=== PATIENT | male | born 1945 | race Hispanic/Latino ===

== ENCOUNTER 2023-01-13 06:45 | Day surgery (SDC) | payer MEDICARE ==
[2023-01-10 10:11] LABS: HEMATOCRIT 46.7 % (42-54); MEAN CORPUSCULAR HEMOGLOBIN 30.7 pg (27.0-33.0); MEAN CORPUSCULAR HGB CONC 32.1 g/dL (32.0-36.0); MEAN CORPUSCULAR VOLUME 95.7 fL (79-99); RED BLOOD CELL COUNT(AUTO) 4.88 MIL/uL (4.50-6.20); RED CELL DISTRIBUTION WIDTH 14.7 % (11.0-15.5); WHITE BLOOD COUNT (AUTO) 6.1 K/uL (4.8-10.8)
[2023-01-10 10:30] LABS: INR 1.04 (0.85-1.15); POTASSIUM 4.5 mmol/L (3.5-5.1); PROTHROMBIN TIME 11.3 SEC (9.6-11.6)
[2023-01-10 10:32] LABS: PARTIAL THROMBOPLASTIN TIME 32.7 SEC (26.3-35.5)
[2023-01-10 13:04] VITALS: BP 111/48
[2023-01-13] VITALS (17 sets, daily range): BP systolic 134–159; BP diastolic 60–74
[~2023-01-13] VITALS: Ht 172.7 cm; Wt 72.7 kg
[~2023-01-13 06:45] MED LIST: CARV12.511 PO; CLOP75TA32 PO; FOLI1TAB85 PO; INSULIN SQ; MEMA10TA55 PO; PRAV40TA3 PO; SEVE800T27 PO; TAMS-1 PO; THIA100T91 PO
[2023-01-13] MEDS ORDERED: 0.9% NACL 500ML IV.SOLN 500 ML IV ONE (07:19)
[2023-01-13 07:21] LABS: CREATININE 6.3 mg/dL (0.5-1.5); POTASSIUM 4.6 mmol/L (3.5-5.1)
[2023-01-13] MEDS: CEFAZOLIN SODIUM 2 GM VIAL IVPB SCH ×2 (07:24→08:45)
[2023-01-13] MEDS ORDERED: CEFAZOLIN SODIUM 1 GM VIAL ONE (07:47)
[2023-01-13] MEDS ORDERED: BUPIVACAINE/PF 0.5% 30ML VIAL ONE (07:50)
[2023-01-13] MEDS ORDERED: PROPOFOL 10 MG/ML 20ML VIAL IV ONE (08:09)
[2023-01-13] MEDS ORDERED: ROCURONIUM 10MG/1ML SYR 10 MG/ML ML ONE (08:10)
[2023-01-13] MEDS ORDERED: FENTANYL CITRATE PF 50 MCG/1 ML 2ML VIAL ONE (08:10)
[2023-01-13] MEDS ORDERED: GLYCOPYRROLATE 1 MG/5 ML SYRINGE ONE (08:30)
[2023-01-13] MEDS ORDERED: INSU100I26 SQ (08:32)
[2023-01-13] MEDS ORDERED: NEOSTIGMINE 5MG/5ML SYR IV ONE (09:34)
== END 2023-01-13 11:15 | disposition home or self-care (01) ==
LOC: DAH 06:45
PROVIDERS: ATTEND Thoracic Surgery (Cardiothoracic Vascular Surgery)
DX: E11.22 Type 2 diabetes mellitus with diabetic chronic kidney disease (principal); Z20.822 Contact with and (suspected) exposure to COVID-19; I12.0 Hypertensive chronic kidney disease with stage 5 chronic kidney disease or end stage renal disease; N18.6 End stage renal disease; E11.51 Type 2 diabetes mellitus with diabetic peripheral angiopathy without gangrene; E78.5 Hyperlipidemia, unspecified; Z98.890 Other specified postprocedural states; Z79.4 Long term (current) use of insulin; Z79.899 Other long term (current) drug therapy; Z79.01 Long term (current) use of anticoagulants; Z99.2 Dependence on renal dialysis
CPT/HCPCS: 80048 ×2; 85027; 85610; 85730; 86850 ×2; 86900 ×2; 86901 ×2; 87426; 36415 ×2; 71045; 93005; 36821; 82948 ×3; A6260; A4663; A6207; J7030; A4452; J7040; J3010; J0690 ×2; J3490 ×2; J2710; J2704; G0168; A4649 ×2; C1713 ×2; A4930; A4223; A4222; A4221

== ENCOUNTER 2023-06-02 07:14 | Day surgery (SDC) | payer MEDICARE, OTHER ==
[2023-05-30 14:06] LABS: HEMATOCRIT 37.1 % (42-54); MEAN CORPUSCULAR HEMOGLOBIN 31.7 pg (27.0-33.0); MEAN CORPUSCULAR HGB CONC 33.4 g/dL (32.0-36.0); MEAN CORPUSCULAR VOLUME 94.9 fL (79-99); RED BLOOD CELL COUNT(AUTO) 3.91 MIL/uL (4.50-6.20); RED CELL DISTRIBUTION WIDTH 14.2 % (11.0-15.5); WHITE BLOOD COUNT (AUTO) 6.9 K/uL (4.8-10.8)
[2023-05-30 14:17] VITALS: BP 89/46; PULSE 77; RESP 20
[2023-05-30 14:24] LABS: INR 0.94 (0.85-1.15)
[2023-05-30 14:25] LABS: PARTIAL THROMBOPLASTIN TIME 28.3 SEC (26.3-35.5)
[2023-05-30 14:38] LABS: POTASSIUM 4.4 mmol/L (3.5-5.1)
[2023-06-02] VITALS (16 sets, daily range): BP systolic 116–139; BP diastolic 49–62; PULSE 52–59; RESP 10–16
[~2023-06-02] VITALS: Ht 177.8 cm; Wt 71.7 kg
[~2023-06-02 07:14] MED LIST changes: +CARB1DRO39 OP; +FOLI0.8T41 PO; -FOLI1TAB85 PO; +INSU100I26 SQ; -INSULIN SQ; -PRAV40TA3 PO; +ROSU40TA21 PO
[2023-06-02] MEDS ORDERED: 0.9% NACL 500ML IV.SOLN 500 ML IV ONE (08:53)
[2023-06-02] MEDS: CEFAZOLIN SODIUM 2 GM VIAL ONE ×2 (09:01→11:15)
[2023-06-02 09:11] LABS: POTASSIUM 4.8 mmol/L (3.5-5.1)
[2023-06-02 09:26] LABS: CREATININE 7.9 mg/dL (0.5-1.5)
[2023-06-02] MEDS ORDERED: BUPIVACAINE/PF 0.5% 30ML VIAL ONE (10:06)
[2023-06-02] MEDS ORDERED: LIDOCAINE HCL 1% 20 ML VIAL ONE (10:06)
[2023-06-02] MEDS ORDERED: CEFAZOLIN SODIUM 1 GM VIAL ONE (10:06)
[2023-06-02] MEDS ORDERED: FAMOTIDINE 20MG VIAL IV ONE (10:39)
[2023-06-02] MEDS ORDERED: FENTANYL CITRATE PF 50 MCG/1 ML 2ML VIAL ONE (10:47)
[2023-06-02] MEDS ORDERED: PROPOFOL 10 MG/ML 20ML VIAL IV ONE (10:47)
[2023-06-02] MEDS ORDERED: GLYCOPYRROLATE 1 MG/5 ML SYRINGE ONE (10:47)
[2023-06-02] MEDS ORDERED: LIDOCAINE PF 100MG/5ML (2%) SYRINGE 5ML ONE (10:47)
[2023-06-02] MEDS ORDERED: ROCURONIUM 10MG/1ML SYR 10 MG/ML ML ONE (10:47)
[2023-06-02] MEDS ORDERED: EPHEDRINE SULFATE 50 MG/ML AMPULE ONE (11:21)
[2023-06-02] MEDS ORDERED: ONDANSETRON 4MG INJ ONE (11:29)
[2023-06-02] MEDS ORDERED: HEPARIN 10,000 UNIT/10ML (1,000 UNIT/ML) VIAL ONE (11:33)
[2023-06-02] MEDS ORDERED: NEOSTIGMINE 5MG/5ML SYR IV ONE (11:57)
[2023-06-03 14:04] VITALS: BP 118/55; PULSE 118; RESP 55
== END 2023-06-02 14:10 | disposition home or self-care (01) ==
LOC: DAH 07:14
PROVIDERS: ATTEND Thoracic Surgery (Cardiothoracic Vascular Surgery)
DX: T82.898A Other specified complication of vascular prosthetic devices, implants and grafts, initial encounter (principal); Z20.822 Contact with and (suspected) exposure to COVID-19; E11.22 Type 2 diabetes mellitus with diabetic chronic kidney disease; N18.6 End stage renal disease; E11.51 Type 2 diabetes mellitus with diabetic peripheral angiopathy without gangrene; G30.9 Alzheimer's disease, unspecified; F02.80 Dementia in other diseases classified elsewhere, unspecified severity, without behavioral disturbance, psychotic disturbance, mood disturbance, and anxiety; E78.5 Hyperlipidemia, unspecified; Z79.01 Long term (current) use of anticoagulants; Z79.899 Other long term (current) drug therapy; Z98.890 Other specified postprocedural states; Z90.49 Acquired absence of other specified parts of digestive tract; Z99.2 Dependence on renal dialysis; Y83.2 Surgical operation with anastomosis, bypass or graft as the cause of abnormal reaction of the patient, or of later complication, without mention of misadventure at the time of the procedure; Y92.89 Other specified places as the place of occurrence of the external cause
CPT/HCPCS: 71045; 80048 ×2; 85027; 85610; 85730; 86850 ×2; 86900 ×2; 86901 ×2; 36415 ×2; 93005; 36821; 82948 ×2; J7030; J7040; J3490 ×4; J3010; J0690 ×2; J2710; J2001; J1644 ×2; J2704; J2405; A4649; C1713 ×2; A4215; A4223; A4222; A4221; A4663; G0168